=== PATIENT | female | born 1930 | race Caucasian/White ===

== ENCOUNTER → 2016-09-14 | Outpatient (CLI) | payer MEDICARE, BC ==
--- NOTE | 2016-09-14 11:54 | XR ---
EXAMINATION TYPE: XR chest 2V DATE OF EXAM: 09/14/2016 11:34 AM COMPARISON: Chest x-ray June 23, 2015. HISTORY: Cough. TECHNIQUE: Frontal and lateral views of the chest are obtained. FINDINGS: There is persistent reticular interstitial prominence seen bilaterally most pronounced in the periphery consistent with interstitial fibrosis. Some patchy left basilar atelectasis and/or infi ltrate is difficult to exclude on background of chronic change was not significantly changed from ileana or study. No pleural effusion or pneumothorax is seen bilaterally. The cardiac silhouette size is sta ble and within normal limits with atherosclerotic thoracic aorta. The osseous structures are demine ralized. Degenerative change in both shoulders is redemonstrated. Soft tissue calcifications are note d in both shoulders. IMPRESSION: Chronic interstitial fibrosis redemonstrated, no acute pulmonary process clearly seen th ough difficult to entirely exclude in the left lung base.
== END | disposition home or self-care (01) ==
LOC: RADXRMAIN 11:18
PROVIDERS: ATTEND Internal Medicine
DX: J84.10 Pulmonary fibrosis, unspecified (principal); M06.9 Rheumatoid arthritis, unspecified
CPT/HCPCS: 71020

== ENCOUNTER → 2016-11-15 | Outpatient (CLI) | payer MEDICARE, BC ==
[2016-11-15 14:39] LABS: ALT 34 U/L (9-52); AST 27 U/L (14-36); Alkaline Phosphatase 46 U/L (38-126); Anion Gap 8 mmol/L; Blood Urea Nitrogen 16 mg/dL (7-17); Carbon Dioxide 32 mmol/L (22-30); Chloride 95 mmol/L (98-107); Glucose 79 mg/dL (74-99); Non-African American GFR(MDRD) >60 (>60 ml/min/1.73 sqM); Potassium 4.4 mmol/L (3.5-5.1); Sodium 135 mmol/L (137-145); Total Bilirubin 0.7 mg/dL (0.2-1.3); Total Protein 6.1 g/dL (6.3-8.2)
[2016-11-15 14:40] LABS: CH 32.8; CHCM 32.4; HCT 35.6 % (34.0-46.0); HDW 2.61; MCH 34.2 pg (25.0-35.0); MCHC 33.7 g/dL (31.0-37.0); MCV 101.4 fL (80.0-100.0); Macrocytosis Slight; Mean Platelet Volume 6.8; RBC 3.51 m/uL (3.80-5.40); WBC 8.9 k/uL (3.8-10.6)
== END | disposition home or self-care (01) ==
LOC: LABWHC1 13:57
PROVIDERS: ATTEND Internal Medicine
DX: M81.0 Age-related osteoporosis without current pathological fracture (principal); M06.9 Rheumatoid arthritis, unspecified
CPT/HCPCS: 36415; 80053; 85027

== ENCOUNTER → 2016-12-05 | Outpatient (CLI) | payer MEDICARE, BC ==
[~2016-12-05] MED LIST: DENOSUMAB 60 MG/ML 1 ML SYRINGE SQ ONE
[2016-12-05 13:47] VITALS: BP 172/72; PULSE 92; RESP 20; TEMP 98.3
== END | disposition home or self-care (01) ==
LOC: PROCWHC3 12:26
PROVIDERS: ATTEND Internal Medicine
DX: M81.0 Age-related osteoporosis without current pathological fracture (principal)
CPT/HCPCS: 96372; J0897

== ENCOUNTER → 2017-04-24 | Outpatient (CLI) | payer MEDICARE, BC ==
[2017-04-24 11:11] LABS: CH 33.3; CHCM 33.6; HCT 39.2 % (34.0-46.0); HDW 2.52; HGB 12.9 gm/dL (11.4-16.0); MCH 32.8 pg (25.0-35.0); MCHC 32.8 g/dL (31.0-37.0); MCV 99.7 fL (80.0-100.0); Macrocytosis Slight; Mean Platelet Volume 7.5; RBC 3.93 m/uL (3.80-5.40); RDW 15.1 % (11.5-15.5); WBC 6.4 k/uL (3.8-10.6)
[2017-04-24 11:21] LABS: ALT 30 U/L (9-52); AST 27 U/L (14-36); Alkaline Phosphatase 50 U/L (38-126); Anion Gap 5 mmol/L; Blood Urea Nitrogen 14 mg/dL (7-17); Carbon Dioxide 34 mmol/L (22-30); Chloride 97 mmol/L (98-107); Cholesterol 162 mg/dL (<200); Glucose 72 mg/dL (74-99); HDL Cholesterol 87 mg/dL (40-60); Non-African American GFR(MDRD) >60 (>60 ml/min/1.73 sqM); Potassium 4.6 mmol/L (3.5-5.1); Sodium 136 mmol/L (137-145); Total Bilirubin 0.8 mg/dL (0.2-1.3); Total Protein 6.2 g/dL (6.3-8.2)
== END | disposition home or self-care (01) ==
LOC: LABWHC1 10:21
PROVIDERS: ATTEND Internal Medicine
DX: E78.5 Hyperlipidemia, unspecified (principal); M06.9 Rheumatoid arthritis, unspecified
CPT/HCPCS: 36415; 80053; 80061; 85027

== ENCOUNTER → 2017-09-15 | Outpatient (CLI) | payer MEDICARE, BC ==
--- NOTE | 2017-09-19 09:03 | MM ---
Reason for exam: screening (asymptomatic). Last mammogram was performed 1 year and 2 months ago. History: Patient is postmenopausal and has history of breast cancer at age 64. Family history of breast cancer in paternal aunt and breast cancer in maternal aunt at age 55. Benign stereotactic core biopsy of the left breast, February 04, 1999. Mastectomy of the right breast, 1993. Took hormonal contraceptives for 2 years beginning at age 37. Took estrogen for 23 years beginning at age 40. Physical Findings: A clinical breast exam by your physician is recommended on an annual basis and results should be correlated with mammographic findings. MG 3D Scr Mukund Unilateral W/Cad Bilateral CC and MLO view(s) were taken. Prior study comparison: July 22, 2016, left breast MG 3d diag mammo w/cad LT. July 13, 2015, left breast MG 3d diag mammo w/cad LT. The breast tissue is heterogeneously dense. This may lower the sensitivity of mammography. Previous mammotome biopsy in the left breast. Focal asymmetry are unchanged. ASSESSMENT: Negative, BI-RAD 1 RECOMMENDATION: Routine screening mammogram of the left breast in 1 year.
== END | disposition home or self-care (01) ==
LOC: RADMAMWWP 10:55
PROVIDERS: ATTEND Internal Medicine
DX: Z12.31 Encounter for screening mammogram for malignant neoplasm of breast (principal); Z80.3 Family history of malignant neoplasm of breast
CPT/HCPCS: 77067

== ENCOUNTER → 2017-10-10 | Outpatient (CLI) | payer MEDICARE, BC ==
--- NOTE | 2017-10-10 13:37 | XR ---
Right ankle HISTORY: Medial ankle pain 3 views of the right ankle No comparisons There is some soft tissue calcifications at the level of the medial ankle joint as well as laterally which likely are coursing within the ligaments about the ankle and within the distal Achilles tendon, plantar aponeurosis. There is soft tissue swelling present. Alignment and bone mineralization are ma intained. No fracture or dislocation. IMPRESSION: Consider metabolic causes, autoimmune disease. There is soft tissue swelling.
== END | disposition home or self-care (01) ==
LOC: RADXRMAIN 10:57
PROVIDERS: ATTEND Internal Medicine
DX: M79.89 Other specified soft tissue disorders (principal); M35.8 Other specified systemic involvement of connective tissue

== ENCOUNTER → 2018-03-19 | Outpatient (CLI) | payer MEDICARE, BC ==
[2018-03-19 13:07] LABS: ALT 29 U/L (9-52); AST 25 U/L (14-36); Albumin 3.9 g/dL (3.5-5.0); Alkaline Phosphatase 56 U/L (38-126); Anion Gap 4 mmol/L; Blood Urea Nitrogen 16 mg/dL (7-17); Calcium 11.1 mg/dL (8.4-10.2); Carbon Dioxide 34 mmol/L (22-30); Chloride 100 mmol/L (98-107); Glucose 78 mg/dL (74-99); Potassium 4.4 mmol/L (3.5-5.1); Sodium 138 mmol/L (137-145); Total Bilirubin 0.7 mg/dL (0.2-1.3); Total Protein 5.9 g/dL (6.3-8.2)
[2018-03-19 13:19] LABS: HCT 38.2 % (34.0-46.0); HGB 12.3 gm/dL (11.4-16.0); MCH 31.3 pg (25.0-35.0); MCHC 32.2 g/dL (31.0-37.0); MCV 97.1 fL (80.0-100.0); Mean Platelet Volume 6.4; Platelet Count 271 k/uL (150-450); RBC 3.93 m/uL (3.80-5.40); RDW 14.4 % (11.5-15.5)
== END | disposition home or self-care (01) ==
LOC: LABWHC1 11:53
PROVIDERS: ATTEND Internal Medicine
DX: M06.9 Rheumatoid arthritis, unspecified (principal)
CPT/HCPCS: 36415; 80053; 85027

== ENCOUNTER → 2018-03-30 | Outpatient (CLI) | payer MEDICARE, BC ==
[2018-03-30 11:08] VITALS: BP 192/76; PULSE 68; RESP 16; TEMP 97.7
== END | disposition home or self-care (01) ==
LOC: PROCWHC3 10:44
PROVIDERS: ATTEND Internal Medicine
DX: M81.0 Age-related osteoporosis without current pathological fracture (principal); M06.9 Rheumatoid arthritis, unspecified
CPT/HCPCS: 96372; J0897

== ENCOUNTER → 2018-08-24 | Outpatient (CLI) | payer MEDICARE, BC ==
[2018-08-24 14:45] LABS: HCT 39.1 % (34.0-46.0); HGB 12.5 gm/dL (11.4-16.0); MCH 31.9 pg (25.0-35.0); MCV 99.8 fL (80.0-100.0); Macrocytosis Slight; Mean Platelet Volume 6.8; Platelet Count 243 k/uL (150-450); RBC 3.91 m/uL (3.80-5.40); RDW 14.4 % (11.5-15.5); WBC 7.1 k/uL (3.8-10.6)
[2018-08-24 19:47] LABS: Albumin 4.2 g/dL (3.80-4.90); Albumin/Globulin Ratio 2.63 (1.20-2.10); Anion Gap 9.2 mmol/L (4.00-12.00); Calcium 10.8 mg/dL (8.7-10.3); Carbon Dioxide 31.8 mmol/L (21.6-31.8); Globulin 1.6 g/dL (1.6-3.3); Potassium 4.4 mmol/L (3.5-5.5); Total Bilirubin 0.4 mg/dL (0.2-1.2); Total Protein 5.8 g/dL (6.2-8.2)
== END ==
LOC: LABWHC1 13:27
PROVIDERS: ATTEND Internal Medicine
DX: I10 Essential (primary) hypertension (principal); M06.9 Rheumatoid arthritis, unspecified; J45.909 Unspecified asthma, uncomplicated
CPT/HCPCS: 36415; 80053; 85027

== ENCOUNTER → 2018-11-30 | Outpatient (CLI) | payer MEDICARE, BC ==
[2018-11-30 15:10] LABS: HCT 35.9 % (34.0-46.0); HGB 11.9 gm/dL (11.4-16.0); MCH 32.8 pg (25.0-35.0); MCHC 33.1 g/dL (31.0-37.0); Macrocytosis Slight; Mean Platelet Volume 6.9; Platelet Count 346 k/uL (150-450); RBC 3.63 m/uL (3.80-5.40); RDW 15.1 % (11.5-15.5); WBC 7.3 k/uL (3.8-10.6)
[2018-11-30 23:10] LABS: Albumin 4.3 g/dL (3.80-4.90); Albumin/Globulin Ratio 3.07 (1.60-3.17); Anion Gap 8.4 mmol/L (4.00-12.00); Calcium 9.6 mg/dL (8.7-10.3); Carbon Dioxide 27.6 mmol/L (21.6-31.8); Globulin 1.4 g/dL (1.6-3.3); Potassium 4.7 mmol/L (3.5-5.5); Total Bilirubin 0.4 mg/dL (0.3-1.2); Total Protein 5.7 g/dL (6.2-8.2)
== END | disposition home or self-care (01) ==
LOC: LABWHC1 14:47
PROVIDERS: ATTEND Internal Medicine
DX: M06.9 Rheumatoid arthritis, unspecified (principal); M81.0 Age-related osteoporosis without current pathological fracture
CPT/HCPCS: 36415; 80053; 82306; 85027

== ENCOUNTER → 2018-11-30 | Outpatient (CLI) | payer MEDICARE, BC ==
[2018-11-30 14:45] VITALS: BP 150/70; PULSE 72; RESP 16; TEMP 98
== END ==
LOC: PROCWHC3 14:38
PROVIDERS: ATTEND Internal Medicine
DX: M81.0 Age-related osteoporosis without current pathological fracture (principal); M06.9 Rheumatoid arthritis, unspecified
CPT/HCPCS: 96372; J0897

== ENCOUNTER → 2018-12-04 | Outpatient (CLI) | payer MEDICARE, BC ==
--- NOTE | 2018-12-04 11:18 | MM ---
Reason for exam: additional evaluation requested from prior study. Last mammogram was performed 1 year and 3 months ago. History: Patient is postmenopausal and has history of breast cancer at age 64. Family history of breast cancer in paternal aunt and breast cancer in maternal aunt at age 55. Benign stereotactic core biopsy of the left breast, February 04, 1999. Mastectomy of the right breast, 1993. Took hormonal contraceptives for 2 years beginning at age 37. Took estrogen for 23 years beginning at age 40. Physical Findings: Nurse did not find any significant physical abnormalities on exam. MG 3D Diag Mammo W/Cad LT CC and MLO view(s) were taken of the left breast. Prior study comparison: September 15, 2017, bilateral MG 3d scr som unilateral w/cad. July 22, 2016, left breast MG 3d diag mammo w/cad LT. The breast tissue is heterogeneously dense. This may lower the sensitivity of mammography. Benign calcifications in the left breast. Left biposy marker. These results were verbally communicated with the patient and result sheet given to the patient on 12/04/18. ASSESSMENT: Benign, BI-RAD 2 RECOMMENDATION: Routine screening mammogram of the left breast in 1 year.
--- NOTE | 2018-12-04 16:24 | BD ---
EXAMINATION TYPE: Axial Bone Density DATE OF EXAM: 12/04/2018 COMPARISON: 2016 CLINICAL HISTORY: osteoporosis Height: 4'10 Weight: 112 FRAX RISK QUESTIONS: Glucocorticoids (More than 3mos): y (Ex: prednisone, prednisolone, methylprednisolone, dexamethasone, and hydrocortisone). Secondary Osteoporosis: 3. Menopause before 45: y RISK FACTORS HISTORY OF: Active: n Postmenopausal woman: y MEDICATIONS: Additional Medications: blood pressure, Additional History: rt breast cancer EXAM MEASUREMENTS: Bone mineral densitometry was performed using the [employer]. Bone mineral density as measured about the Lumbar spine is: ----- L1-L4(G/cm2): 1.711 T Score Values are as follows: ----- L2: 0.3 ----- L3: 4.3 ----- L4: 2.3 ----- L1-L4 : 1.8 Bone mineral density has: Increased 10.2% since study of: 12/01/2015 Bone mineral density about the R hip (g/cm2): 0.797 Bone mineral density about the L hip (g/cm2): 0.859 T Score values are as follows: -----R Neck: -1.7 -----L Neck: -1.3 -----R Total: -1.2 -----L Total: -0.5 Bone mineral density has: Decreased -2.8% since study of: 12/01/2015 IMPRESSION: Osteopenia (T Score between -2.5 and -1). There is slightly increased risk of fracture and the patient may be considered for treatment. Re-Screen 2-5 years. NOTE: T-SCORE=SD OF THE YOUNG ADULT MEAN.
== END | disposition home or self-care (01) ==
LOC: RADMAMWWP 09:32
PROVIDERS: ATTEND Internal Medicine
DX: Z08 Encounter for follow-up examination after completed treatment for malignant neoplasm (principal); M85.80 Other specified disorders of bone density and structure, unspecified site; M06.9 Rheumatoid arthritis, unspecified; Z85.3 Personal history of malignant neoplasm of breast
CPT/HCPCS: 77080; 77065; G0279; 77061

== ENCOUNTER → 2019-04-17 | Outpatient (CLI) | payer MEDICARE, BC ==
--- NOTE | 2019-04-17 12:48 | FL ---
MODIFIED SWALLOW / DEGLUTITION STUDY DATE OF EXAM: 04/17/2019 CLINICAL HISTORY: 88-year-old female with trouble swallowing, Dysphagia. TECHNIQUE: Deglutition study is performed utilizing thin liquid barium, honey and nectar thick liqui d barium, barium thick applesauce, and barium coated cracker. Total fluoroscopy time: 1 minute 13 seconds. Total images: None. Real-time fluoroscopy support was provided to speech pathology. COMPARISON: None. FINDINGS: Degenerative changes throughout the cervical spine with grade 1 anterolisthesis at C3-C4 and C4-C5. P rominent endplate spondylosis is present causing mild posterior impressions on the hypopharynx and up per cervical esophagus. There is also moderate hypertrophy of the cricopharyngeus without obstruction to solids. Trace pharyngeal residuals are noted. The oral and pharyngeal phases show satisfactory initiation and propagation with all modalities teste d. Normal mastication is seen with solid modalities tested. There is no evidence of penetration or aspiration with any modality tested. IMPRESSION: 1. No penetration or aspiration. 2. Moderate CP hypertrophy without any obstruction. 3. Additional spondylotic change of the cervical spine causing mild impressions onto the posterior wa ll of the hypopharynx and cervical esophagus, again without obstruction. Please refer to speech therapist notes for further details if necessary.
[2019-04-17 13:38] LABS: HCT 37.7 % (34.0-46.0); HGB 12.1 gm/dL (11.4-16.0); MCH 31.8 pg (25.0-35.0); MCHC 32.2 g/dL (31.0-37.0); MCV 98.8 fL (80.0-100.0); Mean Platelet Volume 6.7; Platelet Count 296 k/uL (150-450); RBC 3.82 m/uL (3.80-5.40); RDW 14.6 % (11.5-15.5); WBC 10.2 k/uL (3.8-10.6)
[2019-04-17 14:02] LABS: ALT 26 U/L (9-52); AST 31 U/L (14-36); African American GFR (CKD) >90 (>60 ml/min/1.73 sqM); Albumin 3.9 g/dL (3.5-5.0); Alkaline Phosphatase 47 U/L (38-126); Anion Gap 8 mmol/L; Blood Urea Nitrogen 14 mg/dL (7-17); Calcium 9.9 mg/dL (8.4-10.2); Carbon Dioxide 33 mmol/L (22-30); Chloride 93 mmol/L (98-107); Glucose 92 mg/dL (74-99); Potassium 4.4 mmol/L (3.5-5.1); Sodium 134 mmol/L (137-145); Total Bilirubin 0.8 mg/dL (0.2-1.3)
== END | disposition home or self-care (01) ==
LOC: RADFLMAIN 11:23
PROVIDERS: ATTEND Internal Medicine
DX: R13.11 Dysphagia, oral phase (principal); R07.9 Chest pain, unspecified; M06.9 Rheumatoid arthritis, unspecified; C50.911 Malignant neoplasm of unspecified site of right female breast
CPT/HCPCS: 36415; 74230; 80053; 85027

== ENCOUNTER 2019-06-01 11:53 | Emergency (ER) | payer MEDICARE, BC ==
[2019-06-01 12:07] VITALS: BP 170/61; PULSE 49; RESP 18; TEMP 98.1
[2019-06-01] MEDS ORDERED: LIDOCAINE 1% INJ 10MG/ML (20 ML MDV) SQ ONE (12:21)
--- NOTE | 2019-06-01 12:27 | ED ---
Fall HPI - General Chief Complaint: Fall Stated Complaint: slipped in shower, head injury Time Seen by Provider: 06/01/19 12:09 Source: patient Mode of arrival: wheelchair - History of Present Illness Initial Comments: Patient is an 89-year-old female presenting to the emergency department after she took a fall out of her tub this morning. Patient states she slipped on something in her bathtub and landed on her left side on her bathroom floor. Patient states she did hit the back of her head and is complaining of a mild headache right now. Patient states her left shoulder is a little bit sore as well as a small laceration on her elbow. Patient denies loss of consciousness, nausea, vomiting, chest pain, abdominal pain, dizziness, double vision. Patient has no other complaints from her fall. Upon arrival to ER, vital signs are stable. - Related Data Home Medications Medication Instructions Recorded Confirmed Furosemide 20 mg PO DIRECTED 11/28/14 11/30/18 Losartan Potassium 100 mg PO DAILY 11/28/14 11/30/18 Methotrexate Sodium [Methotrexate] 20 mg PO DIRECTED 11/28/14 11/30/18 Mometasone Furoate [Asmanex] 1 puff IH DAILY 11/28/14 11/30/18 Spironolactone 25 mg PO DIRECTED 11/28/14 11/30/18 cycloSPORINE 0.05% OPHTH SOLN 2 drops BOTH EYES BID 11/28/14 11/30/18 [Restasis] traMADol HCl [Ultram] 50 mg PO Q6H PRN 11/28/14 11/30/18 Albuterol Inhaler [Ventolin 2 puff INHALATION Q6HR PRN 12/15/14 11/30/18 Inhaler] Artificial Tears-Hypromellose 1 drop BOTH EYES DIRECTED PRN 12/15/14 11/30/18 [Genteal Eye Drops] Folic Acid 1 mg PO DAILY 12/15/14 11/30/18 Hydrocortisone/Pramoxine 1 applic TOPICAL DIRECTED PRN 12/15/14 11/30/18 [Pramosone 2.5% Lotion] Omeprazole [PriLOSEC] 20 mg PO AC-BRKFST 12/15/14 11/30/18 Fexofenadine HCl [Corinna Allergy] 60 mg PO DAILY 06/03/16 11/30/18 Allergies Allergy/AdvReac Type Severity Reaction Status Date / Time Iodine and Iodide Containing Allergy Anaphylaxis Verified 06/01/19 12:07 Produc lincomycin Allergy Anaphylaxis Verified 06/01/19 12:07 Penicillins Allergy Anaphylaxis Verified 06/01/19 12:07 calcitonin AdvReac Mild Unknown Verified 06/01/19 12:07 fluticasone propionate AdvReac Mild Unknown Verified 06/01/19 12:07 [From Advair Diskus] salmeterol xinafoate AdvReac Mild Unknown Verified 06/01/19 12:07 [From Advair Diskus] aspirin AdvReac Abdominal Verified 06/01/19 12:07 Pain coal tar AdvReac Unknown Verified 06/01/19 12:07 ibandronate sodium AdvReac Abdominal Verified 06/01/19 12:07 [From Boniva] Pain leflunomide [From Arava] AdvReac Abdominal Verified 06/01/19 12:07 Pain lincomycin HCl AdvReac Rash/Hives Verified 06/01/19 12:07 [From Lincocin] meperidine HCl [From Demerol] AdvReac Nausea & Verified 06/01/19 12:07 Vomiting mercury (elemental) AdvReac Rash/Hives Verified 06/01/19 12:07 metoprolol succinate AdvReac Dyspnea Verified 06/01/19 12:07 [From Toprol XL] paraben AdvReac Rash/Hives Verified 06/01/19 12:07 raloxifene HCl [From Evista] AdvReac Dyspnea Verified 06/01/19 12:07 tetanus toxoid, adsorbed AdvReac Unknown Verified 06/01/19 12:07 tetracycline AdvReac Rash/Hives Verified 06/01/19 12:07 Review of Systems ROS Statement: Those systems with pertinent positive or pertinent negative responses have been documented in the HPI. ROS Other: All systems not noted in ROS Statement are negative. Past Medical History Past Medical History: Cancer, Hypertension, Rheumatoid Arthritis (RA) Additional Past Medical History / Comment(s): sjogren'sosteoporosis, rt breast ca History of Any Multi-Drug Resistant Organisms: None Reported Past Surgical History: Adenoidectomy, Appendectomy, Breast Surgery, Cholecystectomy, Hernia Repair, Hysterectomy, Tonsillectomy Additional Past Surgical History / Comment(s): right mastectomy and reconstruction Past Anesthesia/Blood Transfusion Reactions: No Reported Reaction Past Psychological History: No Psychological Hx Reported Smoking Status: Former smoker Past Alcohol Use History: None Reported Past Drug Use History: None Reported General Exam - General Exam Comments Initial Comments: GENERAL: Well-appearing, well-nourished and in no acute distress. HEAD: Normocephalic. Patient has hematoma on the posterior aspect of the head. Tender to palpation. EYES: Pupils equal round and reactive to light, extraocular movements intact, sclera anicteric, conjunctiva are normal. ENT: TMs normal, nares patent, oropharynx clear without exudates. Moist mucous membranes. NECK: Normal range of motion, supple without lymphadenopathy or JVD. LUNGS: Breath sounds clear to auscultation bilaterally and equal. No wheezes rales or rhonchi. HEART: Regular rate and rhythm without murmurs, rubs or gallops. ABDOMEN: Soft, nontender, normoactive bowel sounds. No guarding, no rebound. No masses appreciated. EXTREMITIES: Normal range of motion of all lower extremity joints. Pain with palpation of the left scapula, slightly decreased shoulder flexion. No pitting or edema. No clubbing or cyanosis. NEUROLOGICAL: Cranial nerves II through XII grossly intact. Normal speech, normal gait. PSYCH: Normal mood, normal affect. SKIN: Warm, Dry, normal turgor, no rashes. Patient has a small 1 cm laceration to the left elbow, over her olecranon process. No bleeding at this time. Limitations: physical limitation Course Vital Signs 06/01/19 12:03 Temperature 98.1 F Pulse Rate 49 L Respiratory 18 Rate Blood Pressure 170/61 O2 Sat by Pulse 97 Oximetry Procedures - Laceration Laceration #1 Consent Obtained: verbal consent Indication: laceration Site: upper extremity (Left elbow, over her olecranon process) Size (cm): 1 Description: linear Depth: simple, single layer Anesthetic Used: lidocaine 1% Anesthesia Technique: local infiltration Amount (mls): 2 Pre-repair: irrigated extensively Type of Sutures: nylon Size of Sutures: 5-0 Number of Sutures: 3 Technique: simple, interrupted Patient Tolerated Procedure: well Medical Decision Making - Medical Decision Making Patient is an 89-year-old female presenting after falling out of her bathtub this morning. Patient hit the back of her head as well as the left side of her body. Patient is not on blood thinners. CT of the brain is normal, no acute changes. X-ray of the left shoulder and scapula show no acute fractures. Patient had a 1 cm lac on the left olecranon process that was repaired with 3, 5-0 sutures after cleaning. Antibiotic ointment and bandage was applied. Patient tolerated procedure well. Patient is stable for discharge at this time. Return parameters were discussed with the patient she verbalized understanding. Case discussed with Dr. Rangel. Disposition Clinical Impression: Fall, Laceration of left elbow, Scalp hematoma, Left shoulder pain Disposition: HOME SELF-CARE Condition: Stable Instructions (If sedation given, give patient instructions): Fall Prevention for Older Adults (ED), Care For Your Stitches (ED) Additional Instructions: Please return to the Emergency Department if symptoms worsen or any other concerns. Use Tylenol as needed for pain. Sutures need to be removed in 7-10 days. Follow-up with PCP as needed. Is patient prescribed a controlled substance at d/c from ED?: No Referrals: Lemuel Gallardo MD [Primary Care Provider] - 1-2 days
--- NOTE | 2019-06-01 12:51 | CT ---
EXAMINATION TYPE: CT brain wo con DATE OF EXAM: 06/01/2019 COMPARISON: Previous study dated 10/13/2015 HISTORY: Fall CT DLP: 991.9 mGycm Automated exposure control for dose reduction was used. FINDINGS: There are mild, generalized changes of sulcal prominence and ventriculomegaly, compatible with atroph ic change. There is diffuse periventricular white matter lucency, compatible with chronic white matte r ischemic change. There is no acute focal lesion, mass effect or midline shift identified. I do not see evidence of intracranial blood. Visualized portions of the paranasal sinuses and mastoids are clear. The bony calvarium is intact. IMPRESSION: 1. NO ACUTE INTRACRANIAL ABNORMALITY. 2. MILD ATROPHIC CHANGE. 3. CHRONIC WHITE MATTER ISCHEMIC CHANGE.
--- NOTE | 2019-06-01 12:55 | XR ---
EXAMINATION TYPE: XR shoulder complete LT , 3 VIEWS DATE OF EXAM ORDERED: 06/01/2019 HISTORY: fall, pain. COMPARISON: None. FINDINGS: There are severe degenerative changes within the left shoulder. There are marked degenerati ve changes in the left AC joint. There is near complete loss of the glenohumeral joint space. There i s no fracture or dislocation. There are numerous loose bodies within the glenohumeral joint. No fract ure is seen. No dislocation is identified. IMPRESSION: 1. NO ACUTE OSSEOUS LESION. 2. SEVERE DEGENERATIVE CHANGE. 3. MULTIPLE LOOSE BODIES.
--- NOTE | 2019-06-01 12:56 | XR ---
EXAMINATION TYPE: XR scapula LT , 2 VIEWS DATE OF EXAM ORDERED: 06/01/2019 HISTORY: fall, pain. COMPARISON: None. FINDINGS: Severe degenerative changes about the left shoulder and AC joint are again identified. No scapular fracture is identified. There are calcified lymph nodes in the left hilum. IMPRESSION: 1. NO ACUTE SCAPULAR LESION. 2. EVIDENCE OF OLD GRANULOMATOUS DISEASE. 3. SEVERE DEGENERATIVE CHANGES IN THE RIGHT GLENOHUMERAL JOINT AND AC JOINT.
== END 2019-06-01 13:34 | disposition home or self-care (01) ==
LOC: EC 11:53
DX: S00.03XA Contusion of scalp, initial encounter (principal); S51.012A Laceration without foreign body of left elbow, initial encounter; M25.512 Pain in left shoulder; I10 Essential (primary) hypertension; M06.9 Rheumatoid arthritis, unspecified; Z79.899 Other long term (current) drug therapy; Z91.048 Other nonmedicinal substance allergy status; Z88.0 Allergy status to penicillin; Z88.8 Allergy status to other drugs, medicaments and biological substances; Z88.6 Allergy status to analgesic agent; Z88.5 Allergy status to narcotic agent; Z88.1 Allergy status to other antibiotic agents; Z88.7 Allergy status to serum and vaccine; Z85.3 Personal history of malignant neoplasm of breast; Z87.891 Personal history of nicotine dependence; Z90.11 Acquired absence of right breast and nipple; W18.2XXA Fall in (into) shower or empty bathtub, initial encounter; Y93.E1 Activity, personal bathing and showering; Y92.002 Bathroom of unspecified non-institutional (private) residence as the place of occurrence of the external cause
CPT/HCPCS: 73030; 73010; 70450; 99284; 12001; J2001

== ENCOUNTER → 2019-07-24 | Outpatient (CLI) | payer MEDICARE, BC ==
[2019-07-24 10:01] LABS: HCT 38.5 % (34.0-46.0); HGB 12.4 gm/dL (11.4-16.0); Hypochromasia Slight; MCH 31.8 pg (25.0-35.0); MCHC 32.3 g/dL (31.0-37.0); MCV 98.4 fL (80.0-100.0); Mean Platelet Volume 7.6; Platelet Count 263 k/uL (150-450); RBC 3.91 m/uL (3.80-5.40); RDW 14.2 % (11.5-15.5); WBC 7.1 k/uL (3.8-10.6)
[2019-07-24 16:34] LABS: African American GFR (CKD) 93.7 (60.0-200.0); Albumin 4.2 g/dL (3.80-4.90); Anion Gap 8.5 mmol/L (4.00-12.00); BUN/Creat Ratio 18.33 Ratio (12.00-20.00); Carbon Dioxide 30.5 mmol/L (21.6-31.8); Globulin 1.4 g/dL (1.6-3.3); Non-African American GFR(CKD) 80.8 (60.0-200.0); Potassium 4.1 mmol/L (3.5-5.5); Total Bilirubin 0.8 mg/dL (0.2-1.2); Total Protein 5.6 g/dL (6.2-8.2)
[2019-07-24 16:42] LABS: T4, Free (Free Thyroxine) 1.2 ng/dL (0.80-1.80)
[2019-07-24 16:45] LABS: Gliadin AB IgA, Deaminated NEGATIVE (NEGATIVE); Gliadin AB IgA, Unit <0.2 U/mL
== END | disposition home or self-care (01) ==
LOC: LABWHC1 09:08
PROVIDERS: ATTEND Internal Medicine
DX: K90.9 Intestinal malabsorption, unspecified (principal); R19.7 Diarrhea, unspecified
CPT/HCPCS: 36415; 80053; 82306; 82784; 83516; 84439; 85027; 86255